=== PATIENT | female | born 1975 | race Caucasian/White ===

== ENCOUNTER 2016-10-01 19:35 | Emergency (ER) | payer MEDICAID ==
[~2016-10-01] VITALS: Ht 152.4 cm; Wt 79.4 kg
[2016-10-01 22:29] VITALS: BP 144/79
== END 2016-10-01 22:29 | disposition home or self-care (01) ==
LOC: ED 19:35
DX: I10 Essential (primary) hypertension (principal); F32.9 Major depressive disorder, single episode, unspecified

== ENCOUNTER 2016-10-10 17:02 | Emergency (ER) | payer MEDICAID ==
[~2016-10-10] VITALS: Ht 152.4 cm; Wt 79.4 kg
[2016-10-10 20:04] VITALS: BP 142/86
== END 2016-10-10 20:04 | disposition home or self-care (01) ==
LOC: ED 17:02
DX: N93.8 Other specified abnormal uterine and vaginal bleeding (principal); I10 Essential (primary) hypertension

== ENCOUNTER 2016-11-30 01:27 | Emergency (ER) | payer MEDICAID ==
[2016-11-30 02:26] LABS: BASOPHIL % 0.3 % (0-2); PLATELET COUNT 230 x10^3mcL (130-400); RED CELL DISTRIBUTION WIDTH 13.6 % (11.5-14.5)
[2016-11-30 02:27] LABS: CALCIUM 8.7 mg/dL (8.5-10.1); CREATININE SERUM 1.2 mg/dL (0.6-1.0); POTASSIUM SERUM 3.9 mmol/L (3.5-5.1)
[2016-11-30 02:29] LABS: AMPHETAMINE QUAL UR POSITIVE (NEG <=1000)
[2016-11-30 03:19] VITALS: BP 153/113
== END 2016-11-30 03:19 | disposition home or self-care (01) ==
LOC: ED 01:27
PROVIDERS: Emergency Medicine
DX: S60.221A Contusion of right hand, initial encounter (principal); F15.10 Other stimulant abuse, uncomplicated; I10 Essential (primary) hypertension; B19.20 Unspecified viral hepatitis C without hepatic coma; W22.01XA Walked into wall, initial encounter; Y93.89 Activity, other specified; Y99.8 Other external cause status; Y92.89 Other specified places as the place of occurrence of the external cause
CPT/HCPCS: 36415; J2060; Q0092